=== PATIENT | male | born 1970 | race Caucasian/White ===

== ENCOUNTER → 2018-03-08 07:46 | Outpatient (CLI) | payer OTHER, SELFPAY ==
[2018-03-08 09:08] LABS: Hemoglobin A1C% w Est Avg Glu 7.9 % (4.0-6.0)
== END ==
PROVIDERS: PCP Family Medicine; Visit Provider Family Medicine
DX: E11.65 Type 2 diabetes mellitus with hyperglycemia (principal)
CPT/HCPCS: 36415; 83036

== ENCOUNTER 2018-04-27 22:28 | Observation (INO) | payer OTHER, SELFPAY ==
[2018-04-27 22:37] VITALS: BP 158/91; PULSE 85; RESP 16; O2SAT 99
--- NOTE | 2018-04-27 22:37 | DI.US.S_ITS ---
PROCEDURE: US ABDOMEN INDICATIONS: RUQ pain TECHNIQUE: Real-time focused scanning was performed of the abdomen, with image documentation. COMPARISON: None. FINDINGS: Liver has homogeneous echotexture. Liver is at the upper limits of normal in size measuring 20.0 cm. No focal hepatic mass lesions. There is a 1.4 cm in diameter gallstone lodged in the gallbladder neck. Gallbladder wall is thickened to 5.8 mm. Positive sonographic Lara sign noted. Common bile duct measures 5.2 mm. Pancreas is sonographically normal. Spleen is at the upper limits of normal in size measuring 13.7 cm. Spleen is sonographically normal. Right kidney measures 12.0 cm in longitudinal axis. Left kidney measures 12.5 cm in longitudinal axis. Kidneys are sonographically normal. Abdominal aorta is normal caliber. Common iliac vasculature is normal in caliber. The intrahepatic IVC is patent. IMPRESSION: Sonographic findings compatible with acute cholecystitis with focal 1 cm gallstone lodged in the gallbladder neck. Dictated by: Angela Kerr MD, PhD on 04/28/2018 at 8:39 Approved by: Angela Kerr MD, PhD on 04/28/2018 at 8:42
--- NOTE | 2018-04-27 22:42 | ED.ABDPAIN ---
HPI - Abdominal Pain General Chief Complaint: Abdominal Pain Stated Complaint: STOMACH PAIN Time Seen by Provider: 04/27/18 22:34 Source: patient Mode of arrival: ambulatory Limitations: no limitations History of Present Illness HPI narrative: 47-year-old male, smoker with history of diabetes and hypertension presents with his and chief complaint of rather sudden onset epigastric and right upper quadrant pain with radiation to his back that started earlier today. He denies fever or chills but has nausea in the absence of vomiting. His pain seems to be worse with eating and drinking and improves with rest. MD complaint: abdominal pain Onset (ago): hour(s) Pain Consistency: intermittent Location: RUQ Severity: moderate Quality: cramping and aching Radiation: back Relieving factors: nothing Exacerbating factors: eating Associated symptoms: nausea Related Data Home Medications Medication Instructions Recorded Confirmed lisinopril 10 mg PO DAILY 04/27/18 04/27/18 metformin 1,000 mg PO DAILY 04/27/18 04/27/18 sertraline [Zoloft] 150 mg PO DAILY 04/27/18 04/27/18 Allergies Allergy/AdvReac Type Severity Reaction Status Date / Time quetiapine [QUETIAPINE] Allergy Severe HEART Verified 04/27/18 23:32 SKIPS BEAT Review of Systems Review of Systems All systems reviewed & are unremarkable except as noted in HPI and below Constitutional Denies chills, Denies fever(s), Denies lethargy and Denies weakness Eyes Denies change in vision, Denies eye discharge, Denies irritation and Denies loss of vision ENT Ears, Nose, Mouth, and Throat: Denies change in voice, Denies neck pain and Denies sore throat Cardiovascular Denies chest pain, Denies irregular heart rhythm, Denies lightheadedness, Denies palpitations, Denies dyspnea, Denies dyspnea on exertion and Denies orthopnea Respiratory Denies cough, Denies dyspnea, Denies dyspnea on exertion and Denies wheezing Gastrointestinal Gastrointestinal: Reports abdominal pain, Denies change in bowel habits, Denies diarrhea, Reports nausea and Denies vomiting Genitourinary Denies hematuria, Denies flank pain, Denies urinary incontinence and Denies urinary urgency Musculoskeletal Denies neck pain Integumentary/Breasts Denies pruritus, Denies erythema, Denies rash and Denies wounds Neurologic Denies confusion, Denies loss of vision and Denies weakness Psychiatric Denies anxiety, Denies confusion, Denies depression, Denies homicidal ideation and Denies suicidal ideation Endocrine Denies palpitations Hematologic/Lymphatic Denies easy bruising Allergic/Immunologic Denies wheezing [facility] Social History household members: spouse Smoking Status: Current every day smoker Exam Narrative Exam Narrative: GENERAL: This is a well-nourished, well-developed patient, in mild distress. HEAD: Atraumatic. Normocephalic. No temporal or scalp tenderness. EYES: Pupils equal round and reactive. Extraocular motions intact. No scleral icterus. No injection or drainage. ENT: Nose without bleeding, purulent drainage or septal hematoma. Throat without erythema, tonsillar hypertrophy or exudate. Uvula midline. Airway patent. NECK: Trachea midline. No JVD or lymphadenopathy. Supple, nontender, no meningeal signs. CARDIOVASCULAR: Regular rate and rhythm without murmurs, gallops, or rubs. RESPIRATORY: Clear to auscultation. Breath sounds equal bilaterally. No wheezes, rales, or rhonchi. GASTROINTESTINAL: Abdomen soft, significant epigastric and right upper quadrant pain, nondistended. No hepato-splenomegaly, or palpable masses. No guarding. EXTREMITIES: No clubbing, cyanosis, or edema. No joint tenderness, effusion, or edema noted. BACK: Nontender without deformity or crepitance. No flank tenderness. NEURO: AOx3. SKIN: No rash or erythema. Initial Vital Signs Initial Vital Signs: Vital Signs Pulse Rate 85 04/27/18 22:37 Respiratory Rate 16 04/27/18 22:37 Blood Pressure 158/91 H 04/27/18 22:37 Pulse Oximetry 99 04/27/18 22:37 Course Orders Ordered: ED Orders 04/27/18 22:37 US abdomen complete Stat 04/27/18 22:50 Complete Blood Count AUTO DIFF Stat Comprehensive Metabolic Panel Stat Lipase Stat Sodium Chloride (Normal Saline 0.9%) 1,000 mls @ 125 mls/hr IV CONT SHADY Last Admin: 04/28/18 01:10 Dose: 125 mls/hr HYDROMORPHONE T[employer] (Dilaudid 6 Mg/30 Ml) 6 mg in 30 mls @ 0 mls/hr IV Q8HR SHADY Naloxone HCl (Narcan) 0.2 mg IV Q2MIN PRN; Protocol PRN Reason: Opiate Reversal Ondansetron HCl (Zofran) 4 mg IV Q4HR PRN PRN Reason: Nausea And Vomiting Discontinued Medications Hydromorphone HCl (Dilaudid) 1 mg IV NOW ONE Stop: 04/27/18 23:45 Last Admin: 04/27/18 23:46 Dose: 1 mg Sodium Chloride (Normal Saline 0.9%) 1,000 mls @ 1,000 mls/hr IV BOLUS ONE Stop: 04/27/18 23:35 Last Infusion: 04/28/18 00:19 Dose: 0 mls/hr Admin: 04/27/18 22:58 Dose: 1,000 mls/hr Cefotetan Disodium/Dextrose (Cefotan) 2 gm in 50 mls @ 100 mls/hr IV NOW ONE Stop: 04/28/18 00:56 Last Infusion: 04/28/18 02:03 Dose: 0 mls/hr Admin: 04/28/18 01:04 Dose: 100 mls/hr Ondansetron HCl (Zofran) 4 mg IV NOW ONE Stop: 04/27/18 22:37 Last Admin: 04/27/18 22:58 Dose: 4 mg Pantoprazole Sodium (Protonix) 40 mg IV NOW ONE Stop: 04/27/18 22:37 Last Admin: 04/27/18 22:58 Dose: 40 mg Vital Signs - 8 hr 04/27/18 22:37 04/28/18 00:29 Temperature 97.4 F L Pulse Rate 85 80 Respiratory Rate 16 18 Blood Pressure 158/91 H 149/83 H Pulse Oximetry 99 99 MDM - Abdominal Pain Differential Diagnosis Differential diagnosis: Likely pancreatitis and small bowel obstruction Lab Data Result diagrams: 04/27/18 22:50 04/27/18 22:50 Lab Results 04/27/18 04/27/18 Range/Units 22:50 22:50 WBC 12.7 H (4.5-11.0) X10^3/uL RBC 5.29 (4.5-5.9) X10^6/uL Hgb 15.9 (13.5-17.5) g/dL Hct 46.6 (41-53) % MCV 88.1 (80-100) fL MCH 30.1 (26-34) PG MCHC 34.1 (30-36) % RDW 13.1 (11.6-14.8) % Plt Count 256 (150-400) X10^3/uL Neut % (Auto) 63.3 (50-75) % Lymph % (Auto) 25.7 (25-40) % [place] % (Auto) 5.8 (3-14) % Eos % (Auto) 4.0 (2-4) % Baso % (Auto) 1.2 (0-2) % Neut # (Auto) 8100 H (3531-0813) /uL Sodium 140 (137-145) mmol/L Potassium 4.1 (3.4-5.1) mmol/L Chloride 100 (98-107) mmol/L Carbon Dioxide 29 (22-32) mmol/L BUN 13 (9-20) mg/dL Creatinine 0.90 (0.66-1.25) mg/dL Estimated GFR > 60.0 (>60) mL/min BUN/Creatinine Ratio 14.4 (6-22) Glucose 157 H (70-100) mg/dL Calcium 9.6 (8.4-10.2) mg/dL Total Bilirubin 0.3 (0.2-1.3) mg/dL AST 14 L (17-59) IU/L ALT 20 L (21-72) IU/L Alkaline Phosphatase 99 (38-126) U/L Total Protein 7.6 (6.3-8.2) g/dL Albumin 4.4 (3.5-5.0) g/dL Globulin 3.2 (1.7-4.1) g/dL Albumin/Globulin Ratio 1.4 (1.0-2.8) Lipase 203 (23-300) U/L Discharge Plan Departure Patient Disposition: Admitted As Inpatient Clinical Impression: Acute cholecystitis Discharge Date/Time: 04/28/18 00:21 Interventions: ED Discharge Assessment Last Done: 04/28/18 00:20 Admit Date/Time: 04/27/18 23:50 Admit Provider: Raven Deshpande
[2018-04-27] MEDS: ONDANSETRON 4 MG/2 ML INJ IV (22:58)
[2018-04-27] MEDS: SODIUM CHLORIDE 0.9% 1,000 ML 1000 ML IV (22:58)
[2018-04-27] MEDS: PANTOPRAZOLE 40 MG VIAL IV (22:58)
[2018-04-27 23:01] LABS: Add Manual Diff / Slide Review NO; Basophils Percent Auto 1.2 % (0-2); Hematocrit 46.6 % (41-53); Hemoglobin 15.9 g/dL (13.5-17.5); Lymphocytes Percent Auto 25.7 % (25-40); Mean Corpuscular HGB Conc 34.1 % (30-36); Mean Corpuscular Hemoglobin 30.1 PG (26-34); Mean Corpuscular Volume 88.1 fL (80-100); Monocytes Percent Auto 5.8 % (3-14); Neutrophils Absolute Auto 8100 /uL (1500-7000); Neutrophils Percent Auto 63.3 % (50-75); Platelet Count 256 X10^3/uL (150-400); Red Blood Cell Count 5.29 X10^6/uL (4.5-5.9); Red Cell Distribution Width 13.1 % (11.6-14.8); White Blood Cell Count 12.7 X10^3/uL (4.5-11.0)
[2018-04-27 23:11] LABS: Alanine Aminotransferase 20 IU/L (21-72); Albumin 4.4 g/dL (3.5-5.0); Albumin Globulin Ratio 1.4 (1.0-2.8); Alkaline Phosphatase 99 U/L (38-126); Aspartate Aminotransferase 14 IU/L (17-59); BUN Creatinine Ratio 14.4 (6-22); Bilirubin Total 0.3 mg/dL (0.2-1.3); Blood Urea Nitrogen 13 mg/dL (9-20); Calcium 9.6 mg/dL (8.4-10.2); Carbon Dioxide 29 mmol/L (22-32); Chloride 100 mmol/L (98-107); Estimated Glomerular Filt Rate > 60.0 mL/min (>60); Globulin 3.2 g/dL (1.7-4.1); Glucose 157 mg/dL (70-100); HEMOLYSIS < 15 (0-50); Lipase 203 U/L (23-300); Potassium 4.1 mmol/L (3.4-5.1); Sodium 140 mmol/L (137-145); Total Protein 7.6 g/dL (6.3-8.2)
--- NOTE | 2018-04-27 23:16 | ED_ITS ---
HPI - Abdominal Pain General Chief Complaint: Abdominal Pain Stated Complaint: STOMACH PAIN Time Seen by Provider: 04/27/18 22:34 Source: patient Mode of arrival: ambulatory Limitations: no limitations History of Present Illness HPI narrative: 47-year-old male, smoker with history of diabetes and hypertension presents with his and chief complaint of rather sudden onset epigastric and right upper quadrant pain with radiation to his back that started earlier today. He denies fever or chills but has nausea in the absence of vomiting. His pain seems to be worse with eating and drinking and improves with rest. MD complaint: abdominal pain Onset (ago): hour(s) Pain Consistency: intermittent Location: RUQ Severity: moderate Quality: cramping and aching Radiation: back Relieving factors: nothing Exacerbating factors: eating Associated symptoms: nausea Related Data Home Medications Medication Instructions Recorded Confirmed lisinopril 10 mg PO DAILY 04/27/18 04/27/18 metformin 1,000 mg PO DAILY 04/27/18 04/27/18 sertraline [Zoloft] 150 mg PO DAILY 04/27/18 04/27/18 Allergies Allergy/AdvReac Type Severity Reaction Status Date / Time quetiapine [QUETIAPINE] Allergy Severe HEART Verified 04/27/18 23:32 SKIPS BEAT Review of Systems Review of Systems All systems reviewed & are unremarkable except as noted in HPI and below Constitutional Denies chills, Denies fever(s), Denies lethargy and Denies weakness Eyes Denies change in vision, Denies eye discharge, Denies irritation and Denies loss of vision ENT Ears, Nose, Mouth, and Throat: Denies change in voice, Denies neck pain and Denies sore throat Cardiovascular Denies chest pain, Denies irregular heart rhythm, Denies lightheadedness, Denies palpitations, Denies dyspnea, Denies dyspnea on exertion and Denies orthopnea Respiratory Denies cough, Denies dyspnea, Denies dyspnea on exertion and Denies wheezing Gastrointestinal Gastrointestinal: Reports abdominal pain, Denies change in bowel habits, Denies diarrhea, Reports nausea and Denies vomiting Genitourinary Denies hematuria, Denies flank pain, Denies urinary incontinence and Denies urinary urgency Musculoskeletal Denies neck pain Integumentary/Breasts Denies pruritus, Denies erythema, Denies rash and Denies wounds Neurologic Denies confusion, Denies loss of vision and Denies weakness Psychiatric Denies anxiety, Denies confusion, Denies depression, Denies homicidal ideation and Denies suicidal ideation Endocrine Denies palpitations Hematologic/Lymphatic Denies easy bruising Allergic/Immunologic Denies wheezing [facility] Social History household members: spouse Smoking Status: Current every day smoker Exam Narrative Exam Narrative: GENERAL: This is a well-nourished, well-developed patient, in mild distress. HEAD: Atraumatic. Normocephalic. No temporal or scalp tenderness. EYES: Pupils equal round and reactive. Extraocular motions intact. No scleral icterus. No injection or drainage. ENT: Nose without bleeding, purulent drainage or septal hematoma. Throat without erythema, tonsillar hypertrophy or exudate. Uvula midline. Airway patent. NECK: Trachea midline. No JVD or lymphadenopathy. Supple, nontender, no meningeal signs. CARDIOVASCULAR: Regular rate and rhythm without murmurs, gallops, or rubs. RESPIRATORY: Clear to auscultation. Breath sounds equal bilaterally. No wheezes , rales, or rhonchi. GASTROINTESTINAL: Abdomen soft, significant epigastric and right upper quadrant pain, nondistended. No hepato-splenomegaly, or palpable masses. No guarding. EXTREMITIES: No clubbing, cyanosis, or edema. No joint tenderness, effusion, or edema noted. BACK: Nontender without deformity or crepitance. No flank tenderness. NEURO: AOx3. SKIN: No rash or erythema. Initial Vital Signs Initial Vital Signs: Vital Signs Pulse Rate 85 04/27/18 22:37 Respiratory Rate 16 04/27/18 22:37 Blood Pressure 158/91 H 04/27/18 22:37 Pulse Oximetry 99 04/27/18 22:37 Course Orders Ordered: ED Orders 04/27/18 22:37 US abdomen complete Stat 04/27/18 22:50 Complete Blood Count AUTO DIFF Stat Comprehensive Metabolic Panel Stat Lipase Stat Sodium Chloride (Normal Saline 0.9%) 1,000 mls @ 125 mls/hr IV CONT SHADY Last Admin: 04/28/18 01:10 Dose: 125 mls/hr HYDROMORPHONE STONE DRESSER (Dilaudid 6 Mg/30 Ml) 6 mg in 30 mls @ 0 mls/hr IV Q8HR SHADY Naloxone HCl (Narcan) 0.2 mg IV Q2MIN PRN; Protocol PRN Reason: Opiate Reversal Ondansetron HCl (Zofran) 4 mg IV Q4HR PRN PRN Reason: Nausea And Vomiting Discontinued Medications Hydromorphone HCl (Dilaudid) 1 mg IV NOW ONE Stop: 04/27/18 23:45 Last Admin: 04/27/18 23:46 Dose: 1 mg Sodium Chloride (Normal Saline 0.9%) 1,000 mls @ 1,000 mls/hr IV BOLUS ONE Stop: 04/27/18 23:35 Last Infusion: 04/28/18 00:19 Dose: 0 mls/hr Admin: 04/27/18 22:58 Dose: 1,000 mls/hr Cefotetan Disodium/Dextrose (Cefotan) 2 gm in 50 mls @ 100 mls/hr IV NOW ONE Stop: 04/28/18 00:56 Last Infusion: 04/28/18 02:03 Dose: 0 mls/hr Admin: 04/28/18 01:04 Dose: 100 mls/hr Ondansetron HCl (Zofran) 4 mg IV NOW ONE Stop: 04/27/18 22:37 Last Admin: 04/27/18 22:58 Dose: 4 mg Pantoprazole Sodium (Protonix) 40 mg IV NOW ONE Stop: 04/27/18 22:37 Last Admin: 04/27/18 22:58 Dose: 40 mg Vital Signs - 8 hr 04/27/18 22:37 04/28/18 00:29 Temperature 97.4 F L Pulse Rate 85 80 Respiratory Rate 16 18 Blood Pressure 158/91 H 149/83 H Pulse Oximetry 99 99 MDM - Abdominal Pain Differential Diagnosis Differential diagnosis: Likely pancreatitis and small bowel obstruction Lab Data Result diagrams: 04/27/18 22:50 04/27/18 22:50 Lab Results 04/27/18 04/27/18 Range/Units 22:50 22:50 WBC 12.7 H (4.5-11.0) X10^3/uL RBC 5.29 (4.5-5.9) X10^6/uL Hgb 15.9 (13.5-17.5) g/dL Hct 46.6 (41-53) % MCV 88.1 (80-100) fL MCH 30.1 (26-34) PG MCHC 34.1 (30-36) % RDW 13.1 (11.6-14.8) % Plt Count 256 (150-400) X10^3/uL Neut % (Auto) 63.3 (50-75) % Lymph % (Auto) 25.7 (25-40) % [place] % (Auto) 5.8 (3-14) % Eos % (Auto) 4.0 (2-4) % Baso % (Auto) 1.2 (0-2) % Neut # (Auto) 8100 H (5272-3216) /uL Sodium 140 (137-145) mmol/L Potassium 4.1 (3.4-5.1) mmol/L Chloride 100 (98-107) mmol/L Carbon Dioxide 29 (22-32) mmol/L BUN 13 (9-20) mg/dL Creatinine 0.90 (0.66-1.25) mg/dL Estimated GFR > 60.0 (>60) mL/min BUN/Creatinine Ratio 14.4 (6-22) Glucose 157 H (70-100) mg/dL Calcium 9.6 (8.4-10.2) mg/dL Total Bilirubin 0.3 (0.2-1.3) mg/dL AST 14 L (17-59) IU/L ALT 20 L (21-72) IU/L Alkaline Phosphatase 99 (38-126) U/L Total Protein 7.6 (6.3-8.2) g/dL Albumin 4.4 (3.5-5.0) g/dL Globulin 3.2 (1.7-4.1) g/dL Albumin/Globulin Ratio 1.4 (1.0-2.8) Lipase 203 (23-300) U/L Discharge Plan Departure Patient Disposition: Admitted As Inpatient Clinical Impression: Acute cholecystitis Discharge Date/Time: 04/28/18 00:21 Interventions: ED Discharge Assessment Last Done: 04/28/18 00:20 Admit Date/Time: 04/27/18 23:50 Admit Provider: Raven Deshpande
[2018-04-27] MEDS: HYDROMORPHONE 1 MG INJ IV (23:46)
[2018-04-28] VITALS (19 sets, daily range): BP systolic 117–158; BP diastolic 66–96; PULSE 17–99; RESP 12–18; TEMP 36.3–37.4; O2SAT 91–99; BMI 28.9; BMI 28.8
--- NOTE | 2018-04-28 | PATH_ITS ---
[facility] Accession Number: [id number] . 01 Material submitted: . GALLBLADDER AND CONTENTS . 02 Diagnosis: Gallbladder and Contents, Cholecystectomy: Cholelithiasis with mild chronic cholecystitis. One benign lymph node. Negative for neoplasm. MRV/04/30/2018 . 02 Electronically signed: . Jimmie Foss MD, PhD, Pathologist NPI- [id number] . 01 Gross description: . Received in formalin labeled with the patient's name and gallbladder is a 10.0 x 3.0 x 2.7 cm gallbladder. The serosa is aguirre-farfan and has a slight disruption near the fundus. Adjacent to the cystic duct is an edematous farfan lymph node, which is 2.1 cm in greatest dimension. The gallbladder is opened to reveal a single green-yellow ovoid calculus, which is 3.5 cm in greatest dimension. The mucosa is aguirre-farfan and velvety. The wall measures up to 0.4 cm in thickness. There is a small amount of yellow viscous bile present. [employer] sections are submitted as follows: A1 is the cystic duct margin and sections through the gallbladder; A2 and A3 are the entire lymph node. ([id number]) /[facility] . 02 Pathologist provided ICD-10: K80.60 . 02 CPT . 406225 Performed at: 01 [facility] [address] [facility], [place], [place] [id number] MD El Leal MD Phone: [phone] Performed at: 02 [facility] [address] [place], [place] [id number] MD Yazmin Eduardo MD Phone: [phone]
--- NOTE | 2018-04-28 00:19 | PC.NURSE ---
NS to continue in acute care
[2018-04-28] MEDS: CEFOTETAN 2 GM/50 ML PIGGYBACK IV ×2 (01:04→15:51)
[2018-04-28] MEDS: SODIUM CHLORIDE 0.9% 1,000 ML 125 ML IV ×2 (01:10→10:15)
[2018-04-28] MEDS: HYDROMORPHONE PCA 6 MG/30 ML PCA.VIAL IV ×3 (06:14→22:51)
--- NOTE | 2018-04-28 13:45 | PM.HP.1 ---
History of Present Illness Date Patient Seen: 04/28/18 Time Patient Seen: 13:46 Chief complaint: STOMACH PAIN Narrative: Very pleasant 47 year old man who presented to the ED with complaint of abdominal pain. He was found to have Cholelithiasis with a stone lodged in the neck of the gallbladder. He was diagnosed with acute on chronic cholecystitis and was admitted for pain control and supportive care. He reports he has had intermittent right upper quadrant pain for some time. Never as bad as this last episode. He denies any jaundice or itching. He reports that he can easily walk up a flight of stairs without stopping for chest or leg pain. Patient History Family & Social History Family History: Reviewed 04/28/18 by Raven Deshpande MD Social History: household members spouse Prior Living Arrangements House Safety & Behavioral: Feels Safe in Current Yes Environment Been Physically Hurt or No Threatened By a Person Suicidal Ideation Description None Suicide Plan Description No Plan Tobacco & Substance use: Smoking Status Current every day smoker Smoking packs per day 1 alcohol intake frequency a few times a week Substance Use Type does not use Meds Home Medications Medication Instructions Recorded Confirmed Type lisinopril 10 mg PO DAILY 04/27/18 04/27/18 History metformin 1,000 mg PO DAILY 04/27/18 04/27/18 History sertraline [Zoloft] 150 mg PO DAILY 04/27/18 04/27/18 History Allergies Allergy/AdvReac Type Severity Reaction Status Date / Time quetiapine [QUETIAPINE] Allergy Severe HEART Verified 04/27/18 23:32 SKIPS BEAT Review of Systems Review of Systems All systems reviewed & are unremarkable except as noted in HPI and below Exam Vital Signs (past 8 hours): - 04/28/18 06:31 04/28/18 07:50 04/28/18 11:55 Temperature 97.9 F 97.5 F L 97.4 F L Pulse Rate 17 L 78 75 Respiratory Rate 17 16 16 Blood Pressure 144/86 H 134/85 117/66 Pulse Oximetry 96 96 93 Oxygen Delivery Method Room Air Oxygen Flow Rate 0 Narrative Exam Narrative: Very pleasant 47-year-old gentleman who is in no obvious distress at this HEENT: Normocephalic and atraumatic, pupils equal round reactive to light accommodation with anicteric sclera Lungs: Clear to auscultation bilaterally Heart: Regular rate and rhythm without murmur rub or gallop Abdomen: Soft, small incarcerated umbilical hernia. Active bowel sounds. Mild tenderness to palpation in the right upper quadrant. No rebound or guarding. No voluntary guarding. No heel tap or peritoneal signs. No abdominal masses. Liver is non palpable. Extremities: Warm and well perfused without evidence of imminent tissue loss. Weakly palpable posterior tib pulses bilaterally Objective Labs Result Diagrams: 04/27/18 22:50 04/27/18 22:50 Labs: Laboratory Results - last 24 hr 04/27/18 04/27/18 22:50 22:50 WBC 12.7 H RBC 5.29 Hgb 15.9 Hct 46.6 MCV 88.1 MCH 30.1 MCHC 34.1 RDW 13.1 Plt Count 256 Neut % (Auto) 63.3 Lymph % (Auto) 25.7 [place] % (Auto) 5.8 Eos % (Auto) 4.0 Baso % (Auto) 1.2 Neut # (Auto) 8100 H Sodium 140 Potassium 4.1 Chloride 100 Carbon Dioxide 29 BUN 13 Creatinine 0.90 Estimated GFR > 60.0 BUN/Creatinine Ratio 14.4 Glucose 157 H Calcium 9.6 Total Bilirubin 0.3 AST 14 L ALT 20 L Alkaline Phosphatase 99 Total Protein 7.6 Albumin 4.4 Globulin 3.2 Albumin/Globulin Ratio 1.[address] [place] [address] Ultrasound Report Signed Patient: Digna Verde MR#: [id number] : 1970 Acct:[id number] Age/Sex: 47 / M Date of Service: 04/27/18 Loc: 225-1 Accession Number: [id number] Procedure: US abdomen complete Ordering Provider: Bryant Sarabia D.O. PROCEDURE: US ABDOMEN INDICATIONS: RUQ pain TECHNIQUE: Real-time focused scanning was performed of the abdomen, with image documentation. COMPARISON: None. FINDINGS: Liver has homogeneous echotexture. Liver is at the upper limits of normal in size measuring 20.0 cm. No focal hepatic mass lesions. There is a 1.4 cm in diameter gallstone lodged in the gallbladder neck. Gallbladder wall is thickened to 5.8 mm. Positive sonographic Lara sign noted. Common bile duct measures 5.2 mm. Pancreas is sonographically normal. Spleen is at the upper limits of normal in size measuring 13.7 cm. Spleen is sonographically normal. Right kidney measures 12.0 cm in longitudinal axis. Left kidney measures 12.5 cm in longitudinal axis. Kidneys are sonographically normal. Abdominal aorta is normal caliber. Common iliac vasculature is normal in caliber. The intrahepatic IVC is patent. IMPRESSION: Sonographic findings compatible with acute cholecystitis with focal 1 cm gallstone lodged in the gallbladder neck. Dictated by: Angela Kerr MD, PhD on 04/28/2018 at 8:39 Approved by: Angela Kerr MD, PhD on 04/28/2018 at 8:42 Assessment & Plan Plan: Assessment/Plan Narrative: Pleasant 47-year-old gentleman with acute cholecystitis and cholelithiasis. We discussed the risks and benefits of cholecystectomy and the patient expressed desire to complete the procedure. He understands that we will intend to do the procedure laparoscopically and we will complete this way unless there surgical indications to convert to an open procedure
--- NOTE | 2018-04-28 13:48 | P.HP_ITS ---
History of Present Illness Date Patient Seen: 04/28/18 Time Patient Seen: 13:46 Chief complaint: STOMACH PAIN Narrative: Very pleasant 47 year old man who presented to the ED with complaint of abdominal pain. He was found to have Cholelithiasis with a stone lodged in the neck of the gallbladder. He was diagnosed with acute on chronic cholecystitis and was admitted for pain control and supportive care. He reports he has had intermittent right upper quadrant pain for some time. Never as bad as this last episode. He denies any jaundice or itching. He reports that he can easily walk up a flight of stairs without stopping for chest or leg pain. Patient History Family & Social History Family History: Reviewed 04/28/18 by Raven Deshpande MD Social History: household members spouse Prior Living Arrangements House Safety & Behavioral: Feels Safe in Current Yes Environment Been Physically Hurt or No Threatened By a Person Suicidal Ideation Description None Suicide Plan Description No Plan Tobacco & Substance use: Smoking Status Current every day smoker Smoking packs per day 1 alcohol intake frequency a few times a week Substance Use Type does not use Meds Home Medications Medication Instructions Recorded Confirmed Type lisinopril 10 mg PO DAILY 04/27/18 04/27/18 History metformin 1,000 mg PO DAILY 04/27/18 04/27/18 History sertraline [Zoloft] 150 mg PO DAILY 04/27/18 04/27/18 History Allergies Allergy/AdvReac Type Severity Reaction Status Date / Time quetiapine [QUETIAPINE] Allergy Severe HEART Verified 04/27/18 23:32 SKIPS BEAT Review of Systems Review of Systems All systems reviewed & are unremarkable except as noted in HPI and below Exam Vital Signs (past 8 hours): - 04/28/18 06:31 04/28/18 07:50 04/28/18 11:55 Temperature 97.9 F 97.5 F L 97.4 F L Pulse Rate 17 L 78 75 Respiratory Rate 17 16 16 Blood Pressure 144/86 H 134/85 117/66 Pulse Oximetry 96 96 93 Oxygen Delivery Method Room Air Oxygen Flow Rate 0 Narrative Exam Narrative: Very pleasant 47-year-old gentleman who is in no obvious distress at this HEENT: Normocephalic and atraumatic, pupils equal round reactive to light accommodation with anicteric sclera Lungs: Clear to auscultation bilaterally Heart: Regular rate and rhythm without murmur rub or gallop Abdomen: Soft, small incarcerated umbilical hernia. Active bowel sounds. Mild tenderness to palpation in the right upper quadrant. No rebound or guarding. No voluntary guarding. No heel tap or peritoneal signs. No abdominal masses. Liver is non palpable. Extremities: Warm and well perfused without evidence of imminent tissue loss. Weakly palpable posterior tib pulses bilaterally Objective Labs Result Diagrams: 04/27/18 22:50 04/27/18 22:50 Labs: Laboratory Results - last 24 hr 04/27/18 04/27/18 22:50 22:50 WBC 12.7 H RBC 5.29 Hgb 15.9 Hct 46.6 MCV 88.1 MCH 30.1 MCHC 34.1 RDW 13.1 Plt Count 256 Neut % (Auto) 63.3 Lymph % (Auto) 25.7 [place] % (Auto) 5.8 Eos % (Auto) 4.0 Baso % (Auto) 1.2 Neut # (Auto) 8100 H Sodium 140 Potassium 4.1 Chloride 100 Carbon Dioxide 29 BUN 13 Creatinine 0.90 Estimated GFR > 60.0 BUN/Creatinine Ratio 14.4 Glucose 157 H Calcium 9.6 Total Bilirubin 0.3 AST 14 L ALT 20 L Alkaline Phosphatase 99 Total Protein 7.6 Albumin 4.4 Globulin 3.2 Albumin/Globulin Ratio 1.[address] [place] [address] Ultrasound Report Signed Patient: Digna Verde MR#: [id number] : 1970 Acct:[id number] Age/Sex: 47 / M Date of Service: 04/27/18 Loc: 225-1 Accession Number: [id number] Procedure: US abdomen complete Ordering Provider: Bryant Sarabia D.O. PROCEDURE: US ABDOMEN INDICATIONS: RUQ pain TECHNIQUE: Real-time focused scanning was performed of the abdomen, with image documentation. COMPARISON: None. FINDINGS: Liver has homogeneous echotexture. Liver is at the upper limits of normal in size measuring 20.0 cm. No focal hepatic mass lesions. There is a 1.4 cm in diameter gallstone lodged in the gallbladder neck. Gallbladder wall is thickened to 5.8 mm. Positive sonographic Lara sign noted. Common bile duct measures 5.2 mm. Pancreas is sonographically normal. Spleen is at the upper limits of normal in size measuring 13.7 cm. Spleen is sonographically normal. Right kidney measures 12.0 cm in longitudinal axis. Left kidney measures 12.5 cm in longitudinal axis. Kidneys are sonographically normal. Abdominal aorta is normal caliber. Common iliac vasculature is normal in caliber. The intrahepatic IVC is patent. IMPRESSION: Sonographic findings compatible with acute cholecystitis with focal 1 cm gallstone lodged in the gallbladder neck. Dictated by: Angela Kerr MD, PhD on 04/28/2018 at 8:39 Approved by: Angela Kerr MD, PhD on 04/28/2018 at 8:42 Assessment & Plan Plan: Assessment/Plan Narrative: Pleasant 47-year-old gentleman with acute cholecystitis and cholelithiasis. We discussed the risks and benefits of cholecystectomy and the patient expressed desire to complete the procedure. He understands that we will intend to do the procedure laparoscopically and we will complete this way unless there surgical indications to convert to an open procedure
--- NOTE | 2018-04-28 14:25 | PC.NURSE ---
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 Mostly anxious because he wants to get surgery done. Tender in the right upper quad and sometimes he has pain in the upper back. Has maintained his npo status. Family at bedside. Cont w/poc.
--- NOTE | 2018-04-28 14:51 | PC.NURSE ---
off to OR
[2018-04-28] MEDS: LACTATED RINGERS 1,000 ML 100 ML IV (15:04)
--- NOTE | 2018-04-28 16:18 | SUR.OPER ---
Supine on padded OR bed, head on pillow, arms secured on padded arm boards at <90 degrees abduction, legs uncrossed, safety belt at thigh, tape over blanket over lower legs, foot board.
[2018-04-28] MEDS: BUPIVACAINE 0.5% (PF) VIAL 30 ML INJ (16:28)
[2018-04-28] MEDS: LIDOCAINE 1% W/EPI INJ 20 ML INJ (16:29)
--- NOTE | 2018-04-28 16:54 | PM.OP.1 ---
Operative Date/Time/Diagnoses Date of procedure: 04/28/18 Time of procedure: 16:54 Pre-op diagnosis: Acute cholecystitis and cholelithiasis Post-op diagnosis: same Procedure & Clinicians Procedure: Laparoscopic cholecystectomy Same procedure as scheduled: Yes Indications: Acute cholecystitis and cholelithiasis Surgeon: Raven Deshpande Click Yes if Unassisted: Yes Anesthesia Type: General (Dr. Barth) and Local Operative Notes Findings: Acute cholecystitis with a thickened and edematous gallbladder. Gallbladder hydrops Closure Type: primary Specimen(s): other (Gallbladder in formalin to pathology) Estimated Blood Loss (mL): 10 Procedure in detail: After obtaining informed consent, the patient was brought to the operating room and placed in the supine position on the operating table. Following successful induction of general endotracheal anesthesia, appropriate padding of all bony prominences, and placement of appropriate monitors, the abdomen was prepped and draped in a standard surgical fashion. A timeout was held per SCOAP protocol. Following infiltration with local anesthetic to create a field block, an incision was created superior to the umbilicus and carried down through the skin and subcutaneous tissue to reveal the fascia below. 2-0 Vicryl retention sutures are placed on either side of the midline and the abdomen was entered under direct vision using a 15 blade scalpel. A 10 mm blunt trocar was placed in the abdominal cavity and it was insufflated to 15 mm of Hg pressure. The patient was placed in reverse Trendelenburg position with the left side rotated toward the floor. A second 5 mm trocar was placed in the midepigastrium and 2 more in the right upper quadrant, again after infiltration with local anesthetic and under direct vision with the camera. The gallbladder was grasped in the fundus and elevated up over the liver. This revealed the cholecysto-hepatoduodenal ligament. The cystic duct and artery were carefully identified with gentle dissection. As we were able to clearly see the structures as well as the junction with the common duct; we elected not to perform a cholangiogram. 3 clips were placed proximally on the cystic duct and one distally. The duct was divided between these clips. 2 clips were placed proximally on the cystic artery and one distally. The artery was divided between these clips. The gallbladder was then liberated from its bed in the liver using Bovie cautery. It was placed in an Endoscopic bag and removed via the umbilical port. The camera was returned to the abdominal cavity and the operative site examined carefully. Hemostasis was obtained with cautery. The abdomen was irrigated copiously with warm saline solution and then aspirated free of all particulate matter and fluid. Trochars were then removed under direct vision and the abdomen desufflated by giving the patient a Valsalva maneuver. The umbilical incision was closed with interrupted Vicryl suture and Monocryl sutures were placed in the skin. The remaining skin incisions were closed with Monocryl suture. All sponge, needle, and instrument counts were correct at the conclusion of the case. The patient was allowed to awaken from anesthesia without difficulty and taken to the post anesthesia care unit in good condition. Complications: none Condition: stable Disposition: PACU Plan for aftercare: Okay for discharge to home tonight. Follow up with me in 2 weeks
[2018-04-28] MEDS: LACTATED RINGERS 1,000 ML 42 ML IV (17:21)
--- NOTE | 2018-04-28 18:35 | PC.NURSE ---
1830- Pt arrived to room 225 from PACU via bed. A/O x3, 94%RA, LS clear, denies SOB. BT+, denies nausea, 4 lap sites umbilicus, MEHNAZ, 2 to the RMQ, all well approximated well with dermabond, no s/ss infection, afebrile, 97.4. Ice chips and will advance diet as tolerated. Call light in reach and bed alarm on. Pain 2/10 at this time.
[2018-04-28] MEDS: HYDROMORPHONE 2 MG INJ 0.5 MG IV (22:21)
[2018-04-29 04:12] VITALS: BP 129/84; PULSE 75; RESP 18; TEMP 36.9; O2SAT 93
[2018-04-29] MEDS: HYDROMORPHONE PCA 6 MG/30 ML PCA.VIAL IV (05:41)
[2018-04-29 07:55] VITALS: PULSE 83; RESP 16; O2SAT 94
[2018-04-29 07:58] VITALS: BP 134/84; PULSE 85; RESP 16; TEMP 36.7; O2SAT 92
[2018-04-29 11:25] VITALS: BP 132/77; PULSE 84; RESP 18; TEMP 36.9; O2SAT 95
--- NOTE | 2018-04-29 11:55 | CM.DANOTE ---
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 No History Provided By Patient Medical Record Prior Living Arrangements House Household Members spouse Type of transporation used prior to Drives own vehicle admit Independent with ADL's Yes Is patient alert and oriented? Yes Caregiver for Another No Barriers to Discharge No Discharge Plan Home Transportation Arrangement Family to provide transport home when medically stable. Referrals Initiated None needed Comment Patient to discharge home today with supportive family. Whiteboard Updated in Patient Room with Yes name and ext. # of Cutting Room Supervisor Review Status In Process Please Provide Date Initial DC 04/28/18 Assessment Was Performed Next Review Type Continued Stay Review
== END 2018-04-29 12:00 | disposition home or self-care (01) ==
LOC: ED 23:39 → AC 04-28 07:09
PROVIDERS: Admitting Provider Surgery; Emergency Provider Emergency Medicine; Family Provider Family Medicine; PCP Family Medicine; Visit Provider Surgery
PROC: 0FT44ZZ Resection of Gallbladder, Percutaneous Endoscopic Approach (ICD-10-PCS; CPT 47562; principal; 2018-04-28 15:45)
PROC: (CPT 47562; 2018-04-28 15:45)
DX: K80.00 Calculus of gallbladder with acute cholecystitis without obstruction (principal); R10.11 Right upper quadrant pain; F17.210 Nicotine dependence, cigarettes, uncomplicated; E11.9 Type 2 diabetes mellitus without complications; I10 Essential (primary) hypertension; R10.13 Epigastric pain; Z79.84 Long term (current) use of oral hypoglycemic drugs
CPT/HCPCS: 47562; 49585; 36591; 76700; 80053; 82962; 83690; 85025; 94760; 96374; 96375; 96376; 99283; 99285; G0378; C9113; J0330; J1170; J2405; J2704; J2765; J3010

== ENCOUNTER → 2021-05-02 11:04 | Outpatient (CLI) | payer BC, SELFPAY ==
[2018-04-28 00:46] VITALS: BMI 28.9
--- NOTE | 2021-05-02 | DI.MRI.S_ITS ---
PROCEDURE: MR LUMBAR SPINE WO CON INDICATIONS: Radiculopathy, lumbar region TECHNIQUE: Noncontrast sagittal T1 spin echo and T2 fast echo, sagittal STIR, axial T1 and T2 fast spin echo through the lumbar spine. In cases with scoliosis, additional coronal T2 fast spin echo may be performed. COMPARISON: [facility], , L-SPINE WITHOUT CONTRAST, 03/14/2015, 17:27. FINDINGS: Image quality: Excellent. Alignment and Curvature: There is normal bony alignment. Interval L5 laminectomy and L5-S1 posterior lateral gen and pedicle screw fixation. Bone Marrow: Marrow is of normal overall signal interval development of disc height loss and associated discogenic endplate change subjacent to the L1-L2 disc. No acute vertebral body compression fractures. Spinal Cord: Conus medullaris terminates at the L1 level. Visualized cord demonstrates normal signal and size. Paraspinous Soft Tissues: No paravertebral masses. T12-L1: No canal stenosis or foraminal stenosis. L1-L2: Interval development of disc height loss. Large anterior osteophyte. Discogenic endplate change. Development of a moderate posterior disc protrusion. Mild facet hypertrophy. Borderline canal stenosis. No foraminal stenosis. L2-L3: Minimal disc bulge. Mild facet hypertrophy. Borderline canal stenosis. No foraminal stenosis. L3-L4: Slight interval progression. Minimal disc bulge. Progression of facet hypertrophy. Cvzo-ec-rojragxg canal stenosis. Mild bilateral foraminal stenosis. L4-L5: Slight interval progression. Mild disc bulge. Facet hypertrophy. Mild canal stenosis. Mild bilateral foraminal stenosis. L5-S1: Interval laminectomy and posterior lateral fusion and interbody fusion. Expected residual postop change. The right S1 nerve root is chronically somewhat posteriorly deviated in the right lateral recess. Tissue anterior to the S1 nerve roots most likely represents postoperative scarring. IMPRESSION: 1. Interval posterior laminectomy and fusion at L5-S1. There is expected post surgical change. There is chronic posterior deviation of the right S1 nerve root. Imaging findings likely represents scar. However, if there are current symptoms of a right S1 radiculitis, consider lumbar spine MRI with without contrast. 2. Slight interval progression of findings L1-L2, L3-L4, and L4-L5. There is [id number] canal stenosis at L3-L4 and mild canal stenosis at L4-L5. 3. Multilevel facet arthropathy. Dictated by: Rayshawn Doshi M.D. on 05/02/2021 at 12:55 Approved by: Rayshawn Doshi M.D. on 05/02/2021 at 13:09
== END ==
PROVIDERS: PCP Family Medicine; Referring Provider Family Medicine; Visit Provider Family Medicine
DX: M47.26 Other spondylosis with radiculopathy, lumbar region (principal); M48.061 Spinal stenosis, lumbar region without neurogenic claudication; Z98.1 Arthrodesis status
CPT/HCPCS: 72148

== ENCOUNTER → 2023-07-04 10:38 | Outpatient (CLI) | payer OTHER, SELFPAY ==
[2018-04-28 00:46] VITALS: BMI 28.9
--- NOTE | 2023-07-04 | DI.MRI.S_ITS ---
PROCEDURE: MR ANGIO NECK W CON INDICATIONS: SPRIAN OF LIGAMENTS TECHNIQUE: Axial and sagittal TruFISP through the neck. Coronal dynamic MRA after the administration of contrast in the arterial and venous phases, with rotating 3-dimensional maximum intensity projection (MIP) reformats constructed from subtraction images. COMPARISON: None. FINDINGS: Image quality: Limited exam secondary to delayed contrast bolus.. Carotid system: Great vessels demonstrate a conventional anatomy as they arise from the aortic arch. The origins of the common carotid arteries appear normal. The calibers and courses of the common carotid arteries are likewise normal. The carotid bifurcations appear normal bilaterally. The internal carotid arteries are widely patent up to the [place]. Posterior circulation: The origins of the vertebral arteries are unremarkable. The more superior portions of the vertebral arteries demonstrate normal course and caliber. Vertebral arteries join to form a normal appearing basilar artery. Miscellaneous: Subclavian arteries are patent throughout. Pre-contrast images through the neck demonstrate no soft tissue abnormalities. IMPRESSION: Limited exam secondary to delayed contrast bolus. The arteries of the neck are patent without significant stenosis. The veins of the neck are patent. Any quantitative measurements of stenosis were performed using NASCET criteria. Dictated by: Orville Sheth M.D. on 07/06/2023 at 9:05 Approved by: Orville Sheth M.D. on 07/06/2023 at 9:12
--- NOTE | 2023-07-04 | DI.MRI.S_ITS ---
PROCEDURE: MR CERVICAL SPINE WO CON INDICATIONS: SPRAIN OF LIGAMENTS TECHNIQUE: Noncontrast sagittal T1 spin echo and T2 fast spin echo, sagittal STIR, foraminal oblique sagittal T2 fast spin echo, and axial gradient echo or T2 fast spin echo through the cervical spine. COMPARISON: None. FINDINGS: Image quality: Excellent. Alignment and Curvature: Straightening of the normal cervical lordosis. Bone Marrow: C5 through C7 ACDF. Marrow demonstrates normal overall signal. Spinal Cord: Visualized spinal cord has normal size and signal. No cerebellar tonsillar herniation. Paraspinous Soft Tissues: No paravertebral masses. Prevertebral soft tissues are normal in thickness. Right greater than left mastoid effusions. C2-C3: Disc desiccation. Mild posterior disc osteophyte complex. No central canal stenosis. Facet and uncovertebral arthropathy. Mild bilateral neural foraminal stenosis. C3-C4: Disc desiccation. Posterior disc osteophyte complex. Mild central canal stenosis. Facet and uncovertebral arthropathy. Severe left and moderate right neural foraminal stenosis. C4-C5: Disc desiccation and mild posterior disc osteophyte complex. Mild central canal stenosis. Facet and uncovertebral arthropathy. Moderate right and mild left neural foraminal stenosis. C5-C6: ACDF. No central canal stenosis. Facet and uncovertebral arthropathy. Mild bilateral neural foraminal stenosis. C6-C7: ACDF. No significant central canal stenosis. Facet and uncovertebral arthropathy. Severe right and mild left neural foraminal stenosis. C7-T1: Disc desiccation height loss. Posterior disc osteophyte complex. Moderate central canal stenosis. Facet and uncovertebral arthropathy. Severe bilateral neural foraminal stenosis. T1-T2: Large right foraminal disc extrusion resulting in mild central canal stenosis and moderate right neural foraminal stenosis. IMPRESSION: 1. Multilevel degenerative changes of the cervical spine status post C5 through C7 ACDF. 2. Moderate central canal stenosis at C7-T1. Mild central canal stenosis at C3-C4 and C4-C5. 3. Severe neural foraminal stenosis on the left at C3-C4, right at C6-C7 and bilaterally at C7-T1 Dictated by: Orville Sheth M.D. on 07/06/2023 at 8:56 Approved by: Orville Sheth M.D. on 07/06/2023 at 9:05
== END ==
LOC: MRI 10:38
PROVIDERS: PCP Family Medicine; Referring Provider Registered Nurse; Visit Provider Registered Nurse
DX: M48.02 Spinal stenosis, cervical region (principal); M54.10 Radiculopathy, site unspecified; S13.4XXD Sprain of ligaments of cervical spine, subsequent encounter; M47.812 Spondylosis without myelopathy or radiculopathy, cervical region; R42 Dizziness and giddiness; Z98.1 Arthrodesis status
CPT/HCPCS: 70549; 72141; A9579